=== PATIENT | female | born 1995 | race Caucasian/White ===

== ENCOUNTER 2021-03-07 23:21 | Emergency (ER) | payer BC, MEDICAID ==
[2021-03-07 23:37] LABS: BILIRUBIN,URINE NEGATIVE (NEGATIVE); GLUCOSE, URINE (UA) NEGATIVE (NEGATIVE); KETONES,URINE (UA) TRACE mg/dL (NEGATIVE); LEUKOCYTE ESTERASE, URINE NEGATIVE (NEGATIVE); NITRITE,URINE NEGATIVE (NEGATIVE); OCCULT BLOOD,URINE TRACE-INTA (NEGATIVE); PH,URINE 5.5 PH (5.0-7.5); PROTEIN,URINE NEGATIVE (NEGATIVE); UROBILINOGEN,URINE 0.2 (NORMAL) E.U./dL (NORMAL)
[2021-03-07 23:39] LABS: CLARITY,URINE CLEAR (CLEAR)
[2021-03-07 23:40] LABS: HCG UR QUAL NEGATIVE
[2021-03-07 23:43] LABS: BACTERIA,URINE Rare /HPF (None Seen); RBC,URINE 0-5 /HPF (0-5); SQUAMOUS EPITHELIAL CELL,UR MANY Squamous (<= Few); WBC,URINE 0-3 /HPF (0-5)
[2021-03-07] MEDS ORDERED: MORPHINE 10 MG/ML VIAL IVP STA (23:57)
[2021-03-07] MEDS ORDERED: SODIUM CHLORIDE 0.9% 1,000 ML IV STA (23:57)
[2021-03-07] MEDS ORDERED: ONDANSETRON 4 MG/2 ML VIAL IVP STA (23:57)
[2021-03-08 00:06] LABS: BASOPHILS % (AUTO) 0.4 %; EOSINOPHILS # (AUTO) 0.1 10^3/uL (0.0-0.7); EOSINOPHILS % (AUTO) 1.4 %; HCT - HEMATOCRIT 41.4 % (37.0-47.0); HGB - HEMOGLOBIN 13.4 g/dL (12.0-16.0); LYMPHOCYTES # (AUTO) 2.3 10^3/uL (1.5-3.5); LYMPHOCYTES % (AUTO) 29.4 %; MEAN CORPUSCULAR HEMOGLOBIN 28.5 pg (27.0-31.0); MEAN CORPUSCULAR HGB CONC 32.4 g/dL (32.0-36.0); MEAN CORPUSCULAR VOLUME 87.9 fL (81.0-99.0); MEAN PLATELET VOLUME 9.8 fL (7.9-10.8); MONOCYTES # (AUTO) 0.6 10^3/uL (0.0-1.0); MONOCYTES % (AUTO) 7.4 %; NEUTROPHILS # (AUTO) 4.8 10^3/uL (1.5-6.6); NEUTROPHILS % (AUTO) 60.6 %; PLT - PLATELET COUNT 287 10^3/uL (130-450); RED BLOOD COUNT 4.71 10^6/uL (4.20-5.40); RED CELL DISTRIBUTION WIDTH 13.8 % (12.0-15.0); WHITE BLOOD COUNT 7.9 x10^3/uL (4.8-10.8)
[2021-03-08] MEDS ORDERED: IOPAMIDOL-300 100 ML VIAL ONE (00:10)
[2021-03-08 00:16] LABS: ALBUMIN 4.5 g/dL (3.2-5.5); ALBUMIN/GLOBULIN RATIO 1.3 (1.0-2.2); BILIRUBIN,TOTAL 0.6 mg/dL (0.2-1.0); CALCIUM 9.2 mg/dL (8.5-10.3); CREATININE 0.6 mg/dL (0.4-1.0); POTASSIUM 3.9 mmol/L (3.5-5.0)
[2021-03-08] MEDS ORDERED: ONDANSETRON 4 MG/2 ML VIAL IVP STA (00:25)
[2021-03-08] MEDS ORDERED: HYDROmorphone 1 MG/ML CARPUJECT IVP STA (00:25)
[2021-03-08] MEDS ORDERED: IOPAMIDOL-300 100 ML VIAL IVP ONE (00:47)
[2021-03-08] MEDS ORDERED: KETOROLAC 15 MG/ML VIAL IVP STA (00:59)
--- NOTE | 2021-03-08 01:08 | CT Report ---
PROCEDURE: Abdomen/Pelvis W INDICATIONS: R flank pain, +hematuria CONTRAST: IV CONTRAST: Isovue 300 ml: 100 PO CONTRAST: *NO PO CONTRAST TECHNIQUE: After the administration of IV contrast, 5 mm thick sections acquired from the diaphragms to the symp hysis. 5 mm thick coronal and sagittal reformats were acquired. For radiation dose reduction, the f ollowing was used: automated exposure control, adjustment of mA and/or kV according to patient size. COMPARISON: None. FINDINGS: Image quality: Excellent. ABDOMEN: Lung bases: Lung bases are clear. Heart size is normal. Solid organs: Liver is normal in size. Hepatic steatosis is seen, no discrete hepatic lesion. Spleen shows normal size and enhancement. Gall bladder is surgically absent. Biliary system is non dilated. Pancreas enhances normally. No adrena l nodules. Bilateral kidneys show normal size and enhancement. There is mild prominence of right alyce l collecting system and right ureter extending to the level of right UVJ without definite obstructing renal stone or ureteral stone. No left-sided hydronephrosis or hydroureter. Peritoneum and bowel: Bowel loops demonstrate normal wall thickness and caliber. No free fluid or a ir. Appendix is visualized and is within normal limits. Mild sigmoid diverticulosis is seen, no CT e vidence of acute diverticulitis. Nodes and vessels: No retroperitoneal or mesenteric adenopathy by size criteria. Aorta and inferior vena cava are normal in size. Miscellaneous: No ventral hernias. PELVIS: Genitourinary: Bladder wall thickness is normal. Uterus and bilateral ovaries show no gross abnorma lity. Miscellaneous: No inguinal hernias or adenopathy. Bones: No suspicious bony lesions. No vertebral body compression fractures. IMPRESSION: 1. Mild right-sided hydronephrosis and hydroureter. No obstructing renal stone or ureteral stone is s een. Finding may represent a passed right renal stone. No left-sided hydronephrosis or hydroureter. N ormal-appearing urinary bladder. 2. Normal appendix. No bowel obstruction. No abnormal bowel wall thickening or mesenteric fat strandi ng. Sigmoid diverticulosis without CT evidence of acute diverticulitis. 3. Hepatic steatosis, no discrete hepatic lesion. Prior cholecystectomy. Reviewed by: Pako Monet MD on 03/08/2021 1:06 AM PDT Approved by: Pako Monet MD on 03/08/2021 1:06 AM PDT Station ID: [id number]
[2021-03-08] MEDS ORDERED: oxyCODONE/ACET 5/325 Prepack 4 PO STA (01:35)
[2021-03-08] MEDS ORDERED: ONDANSETRON ODT 4 MG Prepack 2 TL PRN (01:35)
--- NOTE | 2021-03-08 01:38 | ED Physician Documentation ---
History of Present Illness - Stated complaint Stated Complaint: ABD PX, N/V - Chief complaint Chief Complaint: Abd Pain - History obtained from History obtained from: Patient - Additonal information Additional information: 25-year-old woman with past surgical history of cholecystectomy presents with right upper quadrant abdominal pain radiating to the right flank, sharp, associated with nonbloody nonbilious nausea and vomiting, starting about 30 minutes prior to arrival while eating and drinking. Patient denies urinary symptoms, fever. Review of Systems Ten Systems: 10 systems reviewed and negative Constitutional: denies: Fever, Chills GI: reports: Abdominal Pain, Nausea, Vomiting. denies: Diarrhea Musculoskeletal: reports: Back pain PD PAST MEDICAL HISTORY - Past Medical History Past Medical History: No - Past Surgical History Past Surgical History: Yes /[employer]: Dilation and currettage - Present Medications Home Medications: Ambulatory Orders Medication Instructions Recorded Confirmed Ketorolac [Toradol] 10 mg PO Q6H PRN #30 tablet 03/08/21 Ondansetron Odt [Zofran Odt] 4 mg TL Q6H PRN #10 tablet 03/08/21 Tamsulosin [Flomax] 0.4 mg PO DAILY 14 Days #14 tab 03/08/21 - Allergies Allergies/Adverse Reactions: Allergies Allergy/AdvReac Type Severity Reaction Status Date / Time No Known Drug Allergies Allergy Verified 03/07/21 23:28 - Social History Does the pt smoke?: No Smoking Status: Never smoker Does the pt drink ETOH?: Yes Does the pt have substance abuse?: No - Immunizations Immunizations are current?: Yes PD ED PE NORMAL - Vitals Vital signs reviewed: Yes - General General: Alert and oriented X 3, Other (retching, uncomfortable appearing) - HEENT HEENT: Atraumatic, PERRL, EOMI - Neck Neck: Supple, no meningeal sign - Cardiac Cardiac: RRR - Respiratory Respiratory: No respiratory distress, Clear bilaterally - Abdomen Abdomen: Non tender, Non distended, Other (discomfort to palpation of RUQ/RLQ) - Back Back: Other (R CVA ttp) - Derm Derm: Normal color, Warm and dry - Extremities Extremities: No deformity - Neuro Neuro: Alert and oriented X 3 - Psych Psych: Normal mood, Normal affect Results - Vitals Vitals: Vital Signs - 24 hr 03/07/21 03/08/21 03/08/21 23:28 00:21 00:46 Temperature 36 C L Heart Rate 106 H 87 75 Respiratory 20 18 20 Rate Blood Pressure 140/83 H 104/69 118/73 O2 Saturation 98 98 98 03/08/21 01:45 Temperature 36.3 C L Heart Rate 76 Respiratory 17 Rate Blood Pressure 120/71 O2 Saturation 99 Oxygen O2 Source Room air - Labs Labs: Laboratory Tests 03/07/21 03/07/21 03/07/21 23:31 23:31 23:43 WBC 7.9 RBC 4.71 Hgb 13.4 Hct 41.4 MCV 87.9 MCH 28.5 MCHC 32.4 RDW 13.8 Plt Count 287 MPV 9.8 Neut # (Auto) 4.8 Lymph # (Auto) 2.3 Bureau # (Auto) 0.6 Eos # (Auto) 0.1 Baso # (Auto) 0.0 Absolute Nucleated RBC 0.00 Nucleated RBC % 0.0 Sodium Potassium Chloride Carbon Dioxide Anion Gap BUN Creatinine Estimated GFR (MDRD) Glucose Calcium Total Bilirubin AST ALT Alkaline Phosphatase Total Protein Albumin Globulin Albumin/Globulin Ratio Lipase Urine Color YELLOW Urine Clarity CLEAR Urine pH 5.5 Ur Specific [place] >=1.030 H Urine Protein NEGATIVE Urine Glucose (UA) NEGATIVE Urine Ketones TRACE Urine Occult Blood TRACE-INTA Urine Nitrite NEGATIVE Urine Bilirubin NEGATIVE Urine Urobilinogen 0.2 (NORMAL) Ur Leukocyte Esterase NEGATIVE Urine RBC 0-5 Urine WBC 0-3 Ur Squamous Epith Cells MANY Squamous H Urine Bacteria Rare Urine Culture Comments NOT INDICATED Urine HCG, Qual NEGATIVE 03/07/21 23:43 WBC RBC Hgb Hct MCV MCH MCHC RDW Plt Count MPV Neut # (Auto) Lymph # (Auto) Bureau # (Auto) Eos # (Auto) Baso # (Auto) Absolute Nucleated RBC Nucleated RBC % Sodium 140 Potassium 3.9 Chloride 106 Carbon Dioxide 25 Anion Gap 9.0 BUN 14 Creatinine 0.6 Estimated GFR (MDRD) 122 Glucose 83 Calcium 9.2 Total Bilirubin 0.6 AST 24 ALT 21 Alkaline Phosphatase 60 Total Protein 8.0 Albumin 4.5 Globulin 3.5 Albumin/Globulin Ratio 1.3 Lipase 36 Urine Color Urine Clarity Urine pH Ur Specific [place] Urine Protein Urine Glucose (UA) Urine Ketones Urine Occult Blood Urine Nitrite Urine Bilirubin Urine Urobilinogen Ur Leukocyte Esterase Urine RBC Urine WBC Ur Squamous Epith Cells Urine Bacteria Urine Culture Comments Urine HCG, Qual PD MEDICAL DECISION MAKING - ED course ED course: Pain improved s/p toradol. nausea resolved. Pt with hydro on R on CT. d/w patient that she likely passed a kidney stone and will need to f/u outaptient urology. return precautions given. Departure - Departure Disposition: 01 Home, Self Care Clinical Impression: Kidney stone Condition: Good Instructions: Kidney Stones Follow-Up: Deanna Hoover MD [Physician No Access] - Prescriptions: Tamsulosin [Flomax] 0.4 mg PO DAILY 14 Days #14 tab Ketorolac [Toradol] 10 mg PO Q6H PRN #30 tablet PRN Reason: Pain Ondansetron Odt [Zofran Odt] 4 mg TL Q6H PRN #10 tablet PRN Reason: Nausea / Vomiting Comments: You were seen in the emergency department for kidney stones on the right side. Your kidney function was normal and you do not have any signs of infection in the urine. You should follow-up with outpatient urology clinic. Return to the emergency department if you have any new or worsening symptoms or other concerns. Discharge Date/Time: 03/08/21 01:51
[2021-03-08 01:47] VITALS: BP 120/71
== END 2021-03-08 01:51 | disposition home or self-care (01) ==
LOC: ED 23:21
DX: N13.30 Unspecified hydronephrosis (principal); N20.0 Calculus of kidney
CPT/HCPCS: 36415; 74177; 80053; 81001; 81025; 83690; 85025; 96374; 96375; 96376; 99284; 99285; J1170; Q9967; 87086